=== PATIENT | female | born 1935 | race Caucasian/White ===

== ENCOUNTER 2021-05-09 09:13 | Inpatient (IN) ==
--- NOTE | 2021-04-07 15:41 | PAT Medication Instructions ---
Medication Instructions Date of Service April 07, 2021 Home Medications acetaminophen [Tylenol] 325 mg PO QID PRN amlodipine-benazepril [Lotrel] 1 cap PO QAM hydrochlorothiazide 12.5 mg PO QAM vitamin A-vitamin C-vit E-min [Ocuvite] 1 tab PO Q2D STOP taking 2 weeks before surgery (or as soon as possible if surgery is within 2 weeks) vitamin A-vitamin C-vit E-min [Ocuvite] 1 tab PO Q2D DO NOT take the morning of surgery amlodipine-benazepril [Lotrel] 1 cap PO QAM hydrochlorothiazide 12.5 mg PO QAM Take morning of surgery With a small sip of water, OTHERWISE NOTHING TO EAT OR DRINK AFTER MIDNIGHT: acetaminophen [Tylenol] 325 mg PO QID PRN (okay to take up to 4 hours prior to surgery if needed) Take evening before surgery acetaminophen [Tylenol] 325 mg PO QID PRN (if needed) Other Notes If you have any questions please call us at [phone] or [phone] or [phone] or [phone]
--- NOTE | 2021-04-10 09:52 | Anesthesiology Consultation ---
Date of Service April 10, 2021 Assessment & Plan (1) Encounter for pre-operative examination: COVID Status: As of 04/09 assessment, patient denies travel to endemic area, known exposure/sick contacts, or symptoms of COVID19. Patient advised to adhere to social distancing guidelines, wear a mask in public and avoid large crowds or unnecessary travel in the 2 weeks leading up to surgery. Preoperative COVID19 testing to be completed prior to surgery per surgeon's arrangements. Pat ient encouraged to be extra cautious/conscientious with COVID precautions between COVID testing and surgery. Chart Review Chart Review: Acceptable Risk for Surgery (pending pcp and cardio clearances on order) and Patient seen in Pre Admission Testing Teaching & Discussion Instructed NPO after midnight before surgery, except medications with 15 cc of water. Medication instructions provided according to the PAT guidelines. History Surgery Operation Date: 05/09/21 09:25 Proposed Procedures p Left Total Knee Arthroplasty - Rodo Cameron DO Height/Weight Height: 5 ft Weight: 66.8 kg Allergies Allergy/AdvReac Type Severity Reaction Status Date / Time codeine AdvReac Mild "makes her Verified 04/04/21 12:21 feel like she is flying" Medications Home Medications Medication Instructions Recorded Confirmed Last Taken acetaminophen [Tylenol] 325 mg PO QID PRN 04/04/21 04/04/21 Unknown amlodipine-benazepril [Lotrel] 1 cap PO QAM 04/04/21 04/04/21 Unknown hydrochlorothiazide 12.5 mg PO QAM 04/04/21 04/04/21 Unknown vitamin A-vitamin C-vit E-min 1 tab PO Q2D 04/04/21 04/04/21 Unknown [Ocuvite] Past Medical History Medical History Hypertension Osteoarthritis Exercise / Class Metabolic Activity II 4-5 Yardwork/Stairs/Walk up hill (Moves slowly 2/2 pain but does 1 FOS daily at home 1 step at a time, uses cane) Past Surgical History Surgical History History of left cataract surgery History of right cataract surgery Hx laparoscopic cholecystectomy Hx of appendectomy Hx of foot surgery right foot toe surgery Past Anesthesia History No Hx of Anesthesia Complications and No Family Hx of Anesthesia Complications History of PONV No Hx of PONV and No Hx of Motion Sickness Social History Smoking Status: Never smoker Do You Dip or Chew Tobacco: No Hx Alcohol Use: No Hx Substance Use: No substance use type: does not use Review of Systems Pt denies any recent chest pain, shortness of breath, palpitations, cough, fever, URI, or uncontrolled acid reflux (rarely). Physical Exam Vital Signs BP: 151/68 P: 66bpm SPO2: 94% RA T: 97.7 F R: 16 ENMT Mouth: no dental restorations, no chipped teeth and no loose teeth Thyromental Distance: > or= 3.5 Finger Breadths Mallampati Class: II Neck normal visual inspection; neck extension not limited Respiratory normal respiratory effort, lungs clear to auscultation Cardiovascular RRR, no murmur, no edema Vessels: no carotid bruit Lab Results Anesthesia Preop Results Results Anesthesia Widget: WBC 6.61 K/uL (4.8-10.8) 04/10/21 Hgb 15.1 g/dL (12.0-16.0) 04/10/21 Hct 45.2 % (37-47) 04/10/21 Plt 188 K/uL (130-400) 04/10/21 Na 141 mmol/L (136-145) 04/10/21 K 4.7 mmol/L (3.5-5.1) 04/10/21 Cl 107 mmol/L (98-107) 04/10/21 CO2 29 mmol/L (21-32) 04/10/21 BUN 24 mg/dl (7-18) H 04/10/21 Creat 1.32 mg/dl (0.6-1.2) H 04/10/21 Glucose Level 97 mg/dl (70-99) 04/10/21 PT 10.2 Seconds (9.0-12.0) 04/10/21 PTT 24.5 Seconds (21.0-31.0) 04/10/21 INR 1.0 (0.9-1.1) 04/10/21 HA1c 6.0 % (4.5-5.6) H 04/10/21 Urine Color Yellow 04/10/21 Urine Appearance Clear (Clear) 04/10/21 Urine pH 6.5 (4.5-7.5) 04/10/21 Urine Specific [place] 1.017 (1.000-1.030) 04/10/21 Urine Protein Negative (Negative) 04/10/21 Urine Glucose (UA) Negative (Negative) 04/10/21 Urine Ketones Trace (Negative) H 04/10/21 Urine Blood Negative (Negative) 04/10/21 Urine Nitrite Negative (Negative) 04/10/21 Urine Bilirubin Negative (Negative) 04/10/21 Urine Urobilinogen Negative (Negative) 04/10/21 Urine Leukocyte Esterase Trace (Negative) H 04/10/21 Urine WBC (Auto) 1-5 /hpf (0-5) 04/10/21 Urine RBC (Auto) 0-4 /hpf (0-4) 04/10/21 Urine Hyaline Casts (Auto) 1-5 /lpf (0-5) 04/10/21 Urine Epithelial Cells (Auto) >30 /lpf (0-5) H 04/10/21 Urine Bacteria (Auto) 1+ (Negative) H 04/10/21 Blood Type O Positive 04/10/21 Antibody Screen NEGATIVE 04/10/21 Lab Comments: *Patient's office notified of positive bacteria on UA. Testing Electrocardiogram Date: 04/10/21 Sinus rhythm at 66 bpm with frequent PVCs. Left axis deviation. Incomplete left bundle block. Nonspecific ST abnormality. Chest X-Ray Date: 04/10/21 1. No acute pulmonary process. Atherosclerosis.
--- NOTE | 2021-04-19 14:13 | History & Physical Report ---
Date of Service April 19, 2021 date of surgery: 05/09/21 Procedure: Left Total Knee Arthroplasty Assessment & Plan (1) Arthritis of knee, left: Further care discussed with patient and at this point in time has failed conservative measures and would like to proceed with a left total knee repl acement. Plan on discharge will be home with home healthphysical therapy. DVT prophalaxis with TEDs, SCDs and will also place on aspirin 81 mg p.o. b.i.d. for a month postop. Patient will have follow up appointment in our office two weeks post op for staple/suture removal and re-evaluation. Patient otherwise has no other questions or concerns. The risks and benefits have been discussed including, but not limited to, risk of infection, nerve injury, stiffness, loss of motion, failure to improve, etc. Reasonable outcomes and options of treatment were discussed. An explanation of appropriate alternatives to the procedure that may be advantageous were discussed and their risks and benefits, as well as the risks and benefits of not proceeding with treatment. I offered to answer any additional inquiries concerning the treatment involved. All the patient's questions were answered. The patient is agreeable, understanding of the treatment plan and alternatives, and wishes to proceed with the treatment plan. History of Present Illness Chief Complaint: left knee pain Primary Care Provider: NO PCP Becky is a 85 year old female who complains of left knee pain, presents for pre-op evaluation prior to a left total knee replacement by dr Cameron at [facility]. she complains of pain, crepitus, decreased range of motion and stiffness in the left knee. Currently the patient states that the symptoms are moderate-severe. The pain is described as aching, sharp and throbbing. The symptoms are aggravated by ascending stairs, daily activities, first steps while awake walking. Prior NSAIDs include IBU and Aleve. she has been treated with previous visco and cortisone injections in the past without much relief. Allergies Allergy/AdvReac Type Severity Reaction Status Date / Time codeine AdvReac Mild "makes her Verified 04/04/21 12:21 feel like she is flying" Home Medications Medication Instructions Recorded Confirmed Type acetaminophen [Tylenol] 325 mg PO QID PRN 04/04/21 04/04/21 History amlodipine-benazepril [Lotrel] 1 cap PO QAM 04/04/21 04/04/21 History hydrochlorothiazide 12.5 mg PO QAM 04/04/21 04/04/21 History vitamin A-vitamin C-vit E-min 1 tab PO Q2D 04/04/21 04/04/21 History [Ocuvite] Past Med/Surg History Medical History Hypertension Osteoarthritis Surgical History History of left cataract surgery History of right cataract surgery Hx laparoscopic cholecystectomy Hx of appendectomy Hx of foot surgery right foot toe surgery Social History Smoking Status: Never smoker Second Hand Exposure: No; Hx Alcohol Use: No Hx Substance Use: No Preferred Language: Nauruan Communication Ability: Effective Woods Overseer Required: No Beliefs That Will Affect Care: None Current Living Situation: Spouse Feels Safe at Home: Yes Assistive Devices: Glasses Review of Systems Review of Systems: All systems reviewed & are unremarkable except as noted in HPI & below Constitutional: no fever, no chills and no sweats Respiratory: no cough and no dyspnea Cardiovascular: no chest pain, no dyspnea and no orthopnea Gastrointestinal: no abdominal pain, no nausea and no vomiting Musculoskeletal: as per Subjective / HPI Physical Exam Physical Exam: HT: 5ft WT: 66.8kg Constitutional: WD/WN, vitals as above no acute distress Respiratory: normal respiratory effort, lungs clear to auscultation no respiratory distress, no labored breathing and does not use accessory muscles Cardiovascular: RRR, no murmur, no edema Gastrointestinal (Abdomen): normal bowel sounds, soft, nontender, no hepatosplenomegaly Musculoskeletal: Knee: + knee abnormal to inspection (LEFT KNEE), + effusion (+1 effusion), + limited ROM of knee (ROM 0/3/110), + knee ROM with crepitation, + joint line tenderness (medial joint line) and + Asia's sign positive; no deformity, no skin erythema, no ecchymosis, no valgus laxity, no varus laxity, anterior drawer test negative, Ahmet's sign negative and pivot shift test negative Results & Data Results & Data ([facility]) Diagnostic Findings Left Knee X-ray: left knee series confirm advanced degenerative changes to the left knee, tricompartmentally, showing joint space narrowing, osteophyte formation and subchondral sclerosis. no acute bony pathology noted.
[~2021-05-09 09:13] MED LIST: ACETAMINOPHEN 500 MG TAB PO SCH; BUPIVACAINE 0.25% 30 ML VIAL ONE; BUPIVACAINE 0.5 % 5 MG/1 ML PF 10ML VIAL ONE; CeleBREX 200 MG CAP PO SCH; EPINEPHrine INJ 1 MG/ML AMP ONE; FAMOTIDINE 20 MG TAB PO SCH; GABAPENTIN 300 MG CAP PO SCH; LR 500ML BOLUS, THEN 15ML/HR IV SCH; METOCLOPRAMIDE HCL 10 MG TABLET PO SCH; Scopolamine 1 MG TDSY TD SCH; TRANEXAMIC ACID 1,000 MG **IV Intra-op IV SCH; TRANEXAMIC ACID 1,000 MG **IV Pre-op IV SCH; ceFAZolin 1000MG 1,000 MG/7.5 ML SYR IV SCH; dexAMETHasone 4 MG TAB PO SCH
--- NOTE | 2021-05-09 10:09 | History & Physical Bridge Note ---
Date of Service May 09, 2021 History & Physical Bridge Note I have examined the patient, reviewed the History & Physical and in the interval since the performance of the History & Physical I have noted the following changes of clinical significance: no changes noted
[2021-05-09] MEDS ORDERED: ROPIVACAINE 0.5% HCL/PF 150 MG, BUPIVACAINE 0.75% MPF 20 ML, EPINEPHrine 30MG/30ML (OR ... INFIL ONE (10:30)
[2021-05-09] MEDS ORDERED: ACETAMINOPHEN 500 MG TAB ONE (10:36)
[2021-05-09] MEDS ORDERED: CeleBREX 200 MG CAP ONE (10:37)
[2021-05-09] MEDS ORDERED: dexAMETHasone 4 MG TAB PO ONE (10:37)
[2021-05-09] MEDS ORDERED: GABAPENTIN 300 MG CAP ONE (10:38)
[2021-05-09] MEDS ORDERED: FAMOTIDINE 20 MG TAB ONE (10:38)
[2021-05-09] MEDS ORDERED: METOCLOPRAMIDE HCL 10 MG TABLET ONE (10:39)
[2021-05-09] MEDS ORDERED: TRANEXAMIC ACID / 0.7% NACL 1000MG/100ML BAG IV ONE (10:39)
[2021-05-09] MEDS ORDERED: SCOPOLAMINE 1 MG TDSY TD ONE (10:39)
[2021-05-09] MEDS ORDERED: PROPOFOL IV EMULSION 10 MG/ML 20 ML VIAL IV ONE (11:50)
[2021-05-09] MEDS ORDERED: DEXAMETHASONE SOD INJ 4 MG/ML VIAL ONE (12:01)
[2021-05-09] MEDS ORDERED: LIDOCAINE 2% 2 ML VIAL/AMP(20MG/ML) INFIL ONE (12:01)
[2021-05-09] MEDS ORDERED: MIDAZOLAM HCL 1 MG/ML 2ML VIAL ONE (12:01)
[2021-05-09] MEDS ORDERED: fentaNYL citrate 100 MCG/2 ML VIAL IV PRN (13:00)
[2021-05-09] MEDS ORDERED: ONDANSETRON INJ 2 MG/ML 2 ML VIAL IV PRN ×2 (13:00→16:43)
[2021-05-09] MEDS ORDERED: ATROPINE SULFATE 0.1 MG/ML 10ML SYR IV PRN (13:00)
[2021-05-09] MEDS ORDERED: ePHEDrine sulfate 50 MG/ML AMP IV PRN (13:00)
[2021-05-09] MEDS ORDERED: HYDROmorphone INJ 2 MG/ML SYR/VIAL IV PRN (13:00)
--- NOTE | 2021-05-09 14:31 | Operative Report ---
Post Operative Report Pre & Post Diagnosis Operation Date: 05/09/21 09:25 <No data on this case meets the specified criteria> Operation Date: 05/09/21 11:25 Pre-Op Diagnosis: Unilateral Primary Osteoarthritis, Left Knee Post-Op Diagnosis: Unilateral Primary Osteoarthritis, Left Knee I identified the patient and participated in the time-out.: Yes Procedure Operation Date: 05/09/21 09:25 <No data on this case meets the specified criteria> Operation Date: 05/09/21 11:25 Actual Procedures p Left Total Knee Arthroplasty(Left left total knee arthroplasty utilizing [employer] persona with block femur size 8 narrow tibia D polytwelve medial constrained patella 28 raghu- Rodo Cameron DO Surgeon Rodo Cameron DO Medical Billing Clerk Don BALDERRAMA Estimated Blood Loss 5 Findings Consistent with Post-Op Diagnosis Patient presents with severe end-stage DJD valgus alignment 10 degree flexion contracture left knee with eburnated [id number] subchondral sclerosis cystic changes marginal osteophytes moderate to large effusion Specimens Bone and cartilage Drains Medium bore Hemovac Anesthesia Type MAC Spinal Regional Complications none Disposition Accompanied Patient To Recovery: No Disposition: Recovery Room Indications Patient presents with severe end-stage DJD valgus alignment left knee no response to conservative management and physical therapy anti-inflammatories relative rest activity modifications corticosteroid injection patient presents for left total knee arthroplasty Description of Procedure After proper prepping and draping of the left lower extremity anterior midline incision was made over the region of the extensor extensor mechanism after meticulous hemostasis was obtained and maintained in subcutaneous tissues a medial parapatellar incision was made The patella was subluxed lateralward the medial lateral gutter were cleaned from any hypertrophic synovitis and scar tissue of the distal femoral block was placed and the distal femoral osteotomy cut was made subsequently the chamfers anterior and posterior osteotomy cuts were made utilizing the 4-in-1 block the tibia was subsequently subluxed anteriorward medial and ateral meniscal remnants were excised in their entirety remnants of the anterior and posterior cruciate ligaments were excised in their entirety excellent exposure of the proximal tibia was obtained the tibial osteotomy guide was placed on the proximal tibial osteotomy cut was made once again the knee was irrigated with copious amounts of sterile saline solution the patella was subsequently everted lateralward thickened scar tissue around the patella was removed the patella was subsequently cut utilizing a freehand technique and was drilled prepared for final preparation and placement of patella socially flexion-extension gaps were checked and the equal and symmetric trials were placed to the appropriate femoral and tibial trials with poly-spacer being placed for equal flexion and extension gaps and full range of motion including extension to 0 and flexion to 140 the trial components after having been taken to recovery range of motion was subsequently removed meticulous hemostasis was obtained and maintained subsequently a knee block injection of joint cocktail including ropivacaine 0.5% 150 mg. Bupivacaine 0.5% epinephrine 1-200,030 mL's toradol 30 mg dexamethasone 4 mg ketamine 10 mg clonidine 100 micrograms normal saline solution 30 mg was infiltrated into the soft tissues of the posterior knee medial lateral gutters and periosteal synovium special attention was paid to protect neurovascular structures at all times subsequently trial components having been removed the knee was irrigated with sterile saline solution. debris was removed the proximal tibia was subsequently prepared and was made ready for the placement of the tibial component tibial component was also cemented and tamped into position the femoral component was subsequently placed and cemented in the position the patellar component was subsequently cemented in position because hemostasis once again obtained and maintained wound having been thoroughly irrigated with debridement and debridement lavage was performed as well as a medial parapatellar incision closed with #1 Vicryl in i nterrupted fashion subcutaneous was closed with #2 Vicryl skin was closed with skin clips. PA-C was necessary for prepping and drapping as well as wound closure of deep fascia Sub cutaneous tissue and skin and was necessary for the case. A sterile compressive dressing was placed patient was taken to recovery in stable condition of report dictated by Rakesh I attest to the content of the Intraoperative Record and any orders documented therein. Any exceptions are noted below. I attest to the content of the Intraoperative Record and any orders documented therein. Any exceptions are noted below.
[2021-05-09] MEDS ORDERED: ONDANSETRON INJ 2 MG/ML 2 ML VIAL ONE (14:36)
--- NOTE | 2021-05-09 15:39 | XRay Report ---
XR knee LT 1 or 2V routine CLINICAL HISTORY: Postoperative evaluation. COMPARISON: None FINDINGS: Alignment of the total left knee arthroplasty is anatomic. There is no periprosthetic frac ture. No unexpected radiopaque foreign body is noted. There are drains and skin georgette. IMPRESSION: Expected findings following total left knee arthroplasty. ACT 112: Negative or not required by law. Electronically signed by: Rashaad Shaffer M.D. 05/09/2021 3:38 PM
--- NOTE | 2021-05-09 15:41 | Anesthesiology Progress Note ---
Date of Service May 09, 2021 Anesthesia Post Procedure Vital Signs Vital Signs: Temp Pulse Pulse Resp BP Pulse Ox 05/09/21 15:35 73 21 136/61 97 05/09/21 15:25 74 17 120/51 L 98 05/09/21 15:15 75 23 128/64 98 05/09/21 15:07 36.8 C 74 18 123/63 98 05/09/21 10:13 36.8 C 69 18 180/80 H 98 Transfer of Care Handoff Completed per policy Notes Mental Status: alert / awake / arousable Patient Amnestic to Procedure: Yes Nausea / Vomiting: adequately controlled Pain: adequately controlled Airway Patency, RR, SpO2: stable & adequate BP & HR: stable & adequate Hydration State: stable & adequate Neuraxial Anesthesia: was administered and sensory block is resolving Anesthetic Complications: no major complications apparent and Pt Satisfied with anesthetic care Notes: The patient is awake and comfortable. She was noted to have some bigeminy on a rhythm strip but it appears to be similar to her preoperative EKG. The patient's vital signs are all stable and she has no chest pain or sob.
[2021-05-09] MEDS ORDERED: Scopolamine CHECK PATCH PLACEMENT SCH (16:00)
[2021-05-09] MEDS ORDERED: bisacodyL 10 MG SUPP PR PRN (16:43)
[2021-05-09] MEDS ORDERED: NALOXONE HCL 0.4 MG/1 ML VIAL/CARP IV PRN (16:43)
[2021-05-09] MEDS ORDERED: MAGNESIUM HYDROXIDE SUSP 30 ML UDC PO PRN (16:43)
[2021-05-09] MEDS ORDERED: HYDROmorphone INJ 0.5 MG/0.5 ML SYR IV PRN (16:43)
[2021-05-09] MEDS: SODIUM CHLORIDE 0.9% 1000ML 1,000 ML IV SCH (16:52)
[2021-05-09] MEDS: ceFAZolin 1000MG 1,000 MG/7.5 ML SYR IV SCH (21:27)
[2021-05-09] MEDS: SENNA 8.6 MG TAB PO SCH (21:27)
[2021-05-09] MEDS: ACETAMINOPHEN 500 MG TAB PO SCH (21:27)
[2021-05-09] MEDS: DOCUSATE SODIUM 100 MG CAP PO SCH (21:27)
[2021-05-09] MEDS: ASPIRIN 81 MG ECTAB PO SCH (21:28)
[2021-05-10] MEDS: ceFAZolin 1000MG 1,000 MG/7.5 ML SYR IV SCH (04:37)
[2021-05-10] MEDS: ACETAMINOPHEN 500 MG TAB PO SCH ×3 (06:21→21:16)
[2021-05-10] MEDS: SODIUM CHLORIDE 0.9% 1000ML 1,000 ML IV SCH (06:56)
[2021-05-10 07:24] LABS: Hematocrit (blood only) 41.5 % (37-47); Hemoglobin 13.7 g/dL (12.0-16.0); Mean Corpuscular Hemoglobin 31.3 pg (25-34); Mean Corpuscular Volume 94.7 fL (80-100); Mean Platelet Volume 9.8 fL (7.4-10.4); Platelet Count 188 K/uL (130-400); RDW Coefficient of Variation 13.1 % (11.5-14.5); RDW Standard Deviation 45.7 fL (36.4-46.3); Red Blood Count 4.38 M/uL (4.2-5.4); White Blood Count 9.39 K/uL (4.8-10.8)
[2021-05-10 08:03] LABS: BUN Creatinine Ratio 19.9 (10-20); Calcium 9.1 mg/dl (8.5-10.1); Creatinine Clr Calc Pharmacy 24.8 ml/min; Est GFR (African American) 40.4 ml/min; Est GFR (Non-African American) 34.8 ml/min; Potassium 4.5 mmol/L (3.5-5.1)
--- NOTE | 2021-05-10 08:10 | Orthopedic Progress Note ---
Date of Service May 10, 2021 Assessment & Plan (1) Arthritis of knee, left: Plan: Postop day 1 status post left total knee arthroplasty [id number]-[id number]-bzicqle seems to have responded well to being put back to bed and being in the supine position with her head of bed raised to approximately 20 degrees. She has no more episodes of lightheadedness at this time. With her bradycardia of 32, we will consult medicine service out of precaution. PT/OT protocols. Weightbearing as tolerated. If tolerated. We will see how she does with sitting up at the bedside later today. DVT prophylaxis-aspirin p.o. twice daily, DORINDAs, TOÑA shah. Pain management as written. Mild increase in her creatinine noted this morning from 1.32-1.37. Admission and Anticipated Discharge Date Admission Date: May 09, 2021 Subjective Patient lying in bed. She is awake and alert. States that when she got up this morning to the bedside commode she was doing fine. She was able to use the bedside commode successfully however she began to become very lightheaded near the end of the process and they were able to get her back into bed. Nursing not ed that her heart rate had dropped down as low as 32 and they were having difficulty getting blood pressures. Patient denies any shortness of breath or chest pain. Currently she has no lightheadedness and her blood pressure and heart rate have come back up. Most recent heart rate was 75 and systolic blood pressure was 149. Her pain is controlled at this time. She has no complaints. Physical Exam Physical Exam: Dressings are clean, dry, and intact. Calves are soft and nontender. Neurovascular intact. Toes are mobile. She has good dorsiflexion and plantarflexion of the left foot. Hemovac drainage was minimal from the previous shift. Results & Data ([facility]) Vital Signs (Past 12 Hours) Vital Signs Temp Pulse Resp BP Pulse Ox 05/10/21 03:45 36.4 C L 54 L 16 141/72 H 98 05/09/21 23:08 36.6 C 57 L 17 145/87 H 97 05/09/21 20:14 36.4 C L Laboratory Results Laboratory Results WBC 9.39 K/uL (4.8-10.8) 05/10/21 07:05 RBC 4.38 M/uL (4.2-5.4) 05/10/21 07:05 Hgb 13.7 g/dL (12.0-16.0) 05/10/21 07:05 Hct 41.5 % (37-47) 05/10/21 07:05 MCV 94.7 fL (80-100) 05/10/21 07:05 MCH 31.3 pg (25-34) 05/10/21 07:05 MCHC 33.0 g/dL (32-36) 05/10/21 07:05 RDW Std Deviation 45.7 fL (36.4-46.3) 05/10/21 07:05 RDW Coeff of Thomas 13.1 % (11.5-14.5) 05/10/21 07:05 Plt Count 188 K/uL (130-400) 05/10/21 07:05 MPV 9.8 fL (7.4-10.4) 05/10/21 07:05 Sodium 140 mmol/L (136-145) 05/10/21 07:05 Potassium 4.5 mmol/L (3.5-5.1) 05/10/21 07:05 Chloride 111 mmol/L (98-107) H 05/10/21 07:05 Carbon Dioxide 25 mmol/L (21-32) 05/10/21 07:05 Anion Gap 4.0 (3-11) 05/10/21 07:05 BUN 27 mg/dl (7-18) H 05/10/21 07:05 Creatinine 1.37 mg/dl (0.6-1.2) H 05/10/21 07:05 Est Cr Clr Drug Dosing 24.8 ml/min 05/10/21 07:05 Est GFR ( Amer) 40.4 ml/min 05/10/21 07:05 Est GFR (Non-Af Amer) 34.8 ml/min 05/10/21 07:05 BUN/Creatinine Ratio 19.9 (10-20) 05/10/21 07:05 Glucose 148 mg/dl (70-99) H 05/10/21 07:05 Calcium 9.1 mg/dl (8.5-10.1) 05/10/21 07:05 COVID-19 [facility] [place] 05/09/21 08:11 SARS-CoV-2, RNA, NAAT NEGATIVE (NEGATIVE) 05/09/21 08:11 Impressions Knee X-Ray 05/09/21 15:14 XR knee LT 1 or 2V routine CLINICAL HISTORY: Postoperative evaluation. COMPARISON: None FINDINGS: Alignment of the total left knee arthroplasty is anatomic. There is no periprosthetic fracture. No unexpected radiopaque foreign body is noted. There are drains and skin georgette. IMPRESSION: Expected findings following total left knee arthroplasty. ACT 112: Negative or not required by law. Electronically signed by: Rashaad Shaffer M.D. 05/09/2021 3:38 PM
--- NOTE | 2021-05-10 08:30 | Hospitalist Consultation ---
Date of Consultation May 10, 2021 Assessment & Plan (1) Near syncope: Impression: This is an 85-year-old female that underwent total knee arthroplasty of the left knee yesterday with total EBL of 5 mL. She has been doing well but had near syncope when returning from the restroom this morning. She had bradycardia with a heart rate of 32 bpm and staff was unable to obtain blood pressure with Dinamap machine. Manual pressure was not attempted. Patient is alert and oriented and had no loss of consciousness. No chest pain or tightness. Recommendations: * Stat EKG * Orthostatic blood pressures * Check BSG (no history of diabetes mellitus or hypoglycemia) * Check troponin I * Echocardiogram * Check manual pressures * Check a TSH At this time we will not transfer the patient to telemetry unit pending current work-up. She is asymptomatic. Watch her closely at this time Pending results of above, may move to telemetry (2) S/P knee replacement: POD #[address] Cameron Pain controlled Ambulating well Further management per orthopedics (3) Hypertension: Due to near syncope and hypotension this morning, will hold hydrochlorothiazide, enalapril, and amlodipine Systolic pressure currently 146 (4) DVT prophylaxis: Aspirin 81 mg p.o. daily per orthopedics Chemical prophylaxis per orthopedics Thank you very much for including us in the care of this patient. We will continue to follow along pending the above orders. Please refer to Dr. High's addendum for corrections or additions. Supervising Physician Co-Signing Physician Notes I personally saw and examined the patient. I verified all crockett points and agree with Rajan Borja PA-C with the following exceptions and/or additions: O/E Chest CTAB, HS regularly irregular (occasional bigeminy), no murmurs, pulse 60 however weaker pulse when ectopic beat present Presyncope with excessive PVC burden. Per pre-op EKG this appears to be longstanding. Given ongoing pre-syncope will trend troponins and observe further on telemetry, echocardiogram pending. Avoid additional BB or Ca channel mauricio for now. History of Present Illness Reason for Consultation: Near syncope Requesting Physician: Don Reza PA-C Attending Physician: Rodo Cameron DO History of Present Illness Attending: Dr. Josh High This is a very pleasant 85-year-old female with a past medical history including osteoarthritis, hypertension. The patient presented yesterday for total left knee arthroplasty and successfully had a knee replacement with an estimated blood loss of only 5 mL. Pain is generally controlled. She has been doing well since her surgery. This morning she went to the bathroom and was on her way back to the bed when she had episodic bradycardia with a rate in the 30s. She is alert and oriented. She had no loss of consciousness. She is able to safely make it back to the bed. Nursing was unable to obtain a blood pressure with Dinamap. Patient had no chest pain or tightness. She denied any shortness of breath. She denied significant acute pain in the knee at the time of the bradycardia. Almost immediately the patient's systolic blood pressure recovered and is currently 146/59 with a rate of 74 bpm. Patient had no fever, chills, sweats, rigors. She denies any other acute complaints. Allergies Allergy/AdvReac Type Severity Reaction Status Date / Time codeine AdvReac Mild "makes her Verified 04/04/21 12:21 feel like she is flying" Home Medications Medication Instructions Recorded Confirmed Type acetaminophen 325 mg tablet 325 mg PO QID PRN 04/04/21 05/09/21 History (Tylenol) amlodipine 5 mg-benazepril 20 mg 1 cap PO QAM 04/04/21 05/09/21 History capsule (Lotrel) hydrochlorothiazide 12.5 mg capsule 12.5 mg PO QAM 04/04/21 05/09/21 History vitamin A-vitamin C-vit E-min 1 tab PO Q2D 04/04/21 05/09/21 History tablet Patient History Medical History (Updated 05/10/21 @ 09:04 by Rajan Borja PA-C) Hypertension Osteoarthritis Surgical History (Updated 05/10/21 @ 09:04 by Rajan Borja PA-C) History of left cataract surgery History of right cataract surgery Hx laparoscopic cholecystectomy Hx of appendectomy Hx of foot surgery right foot toe surgery Social History Smoking Status: Never smoker Second Hand Exposure: No; Do You Dip or Chew Tobacco: No; Tobacco Cessation Education Requested by Patient: No Hx Alcohol Use: No Hx Substance Use: No Preferred Language: [place]an Communication Ability: Effective Cigarette Seller Required: No Beliefs That Will Affect Care: None marital status: Current Living Situation: Spouse Other Information That Helps Us Care for You: No Feels Safe at Home: Yes Safety Concerns: Feels Safe At This Time Assistive Devices: Walker Review of Systems Review of Systems: All systems reviewed & are unremarkable except as noted in Subjective Physical Exam Physical Exam: GENERAL : No acute distress. Pleasant and talkative EYES: No icterus, gaze conjugate. Pupils equal round and reactive to light NOSE: No evidence of epistaxis. MOUTH: No lesions or candidiasis. Mucosa is moist NECK: Supple. No appreciation of stridor or carotid bruits LUNGS: CTA B/L, no wheezes, rales or rhonchi HEART: Regular, rate controlled with occasional ectopy ABDOMEN: Soft, NT, ND, BS Present EXTREMITIES: No LE edema, pedal pulses intact NEURO: A&OX3. Follows commands. No slurred speech. Tongue midline. Pupils equal round and reactive to light. Strength equal and appropriate bilaterally to upper extremities. No focal deficits to cranial nerves II through XII appreciated. Gait and Romberg were deferred secondary to near syncope. Results & Data Results & Data ([facility]) Vital Signs (Past 12 Hours) Vital Signs Temp Pulse Resp BP BP Pulse Ox 05/10/21 08:18 74 146/59 H 93 05/10/21 08:17 40 L 127/50 L 91 05/10/21 03:45 36.4 C L 54 L 16 141/72 H 98 05/09/21 23:08 36.6 C 57 L 17 145/87 H 97 Laboratory Results 05/10/21 07:05 05/10/21 07:05 PG Care Time/CCT Total # of Minutes Spent Total Time Spent with Patient: Total time spent is greater than 50% in coordination of care (as documented) at patient's floor/unit and/or counseling patient:45 minutes Coding Level of Care Code 52744 Inpt Consult Level 5 Diagnoses DVT prophylaxis Z29.9 S/P knee replacement Z96.659 Hypertension I10 Near syncope R55 Time Spent (min) 45
[2021-05-10] MEDS ORDERED: ENALAPRIL MALEATE 10 MG TAB PO SCH (09:00)
[2021-05-10] MEDS ORDERED: hydroCHLOROthiazide 25 MG TAB PO SCH (09:00)
[2021-05-10] MEDS: MULTIVITAMIN TAB PO SCH (11:14)
[2021-05-10] MEDS: ASPIRIN 81 MG ECTAB PO SCH ×2 (11:15→21:17)
[2021-05-10] MEDS: DOCUSATE SODIUM 100 MG CAP PO SCH ×2 (11:15→21:17)
--- NOTE | 2021-05-10 16:25 | Electrocardiogram Report ---
Test Reason : Blood Pressure : / mmHG Vent. Rate : 069 BPM Atrial Rate : 069 BPM P-R Int : 210 ms QRS Dur : 110 ms QT Int : 420 ms P-R-T Axes : 070 -34 -15 degrees QTc Int : 450 ms Sinus rhythm with 1st degree A-V block with frequent Premature ventricular complexes in a pattern of bigeminy Left axis deviation Minimal voltage criteria for LVH, may be normal variant Poor R wave progression, consider anterior ME vs. lead placement vs. LVH Abnormal ECG When compared with ECG of 10-APR-2021 10:12, NV interval has increased Borderline criteria for Anterior infarct are now Present Confirmed by Delmar Rainey ([id number]) on 05/10/2021 4:25:16 PM Referred By: Rodo Cameron Confirmed By:Delmar Rainey
--- NOTE | 2021-05-10 16:58 | XCELERA ---
[id number]
[2021-05-10] MEDS ORDERED: PNEUMOCOCCAL POLYSACCHARIDES 25 MCG/0.5 ML VIAL/SYR IM ONE (19:32)
[2021-05-10] MEDS: SENNA 8.6 MG TAB PO SCH (21:17)
[2021-05-11] MEDS: ACETAMINOPHEN 500 MG TAB PO SCH ×3 (04:57→22:02)
--- NOTE | 2021-05-11 08:16 | Electrocardiogram Report ---
Test Reason : Blood Pressure : / mmHG Vent. Rate : 070 BPM Atrial Rate : 057 BPM P-R Int : 178 ms QRS Dur : 112 ms QT Int : 404 ms P-R-T Axes : -09 -30 004 degrees QTc Int : 436 ms Sinus bradycardia with frequent Premature ventricular complexes Left axis deviation Cannot rule out Anterior infarct (cited on or before 10-MAY-2021) Abnormal ECG When compared with ECG of 10-MAY-2021 08:27, No significant change Confirmed by Nathan Baldwin ([id number]) on 05/11/2021 8:15:55 AM Referred By: Rodo Cameron Confirmed By:Nathan Baldwin
[2021-05-11] MEDS: MULTIVITAMIN TAB PO SCH (08:54)
[2021-05-11] MEDS: DOCUSATE SODIUM 100 MG CAP PO SCH ×2 (08:54→20:18)
[2021-05-11] MEDS: ASPIRIN 81 MG ECTAB PO SCH ×2 (08:54→20:15)
[2021-05-11] MEDS: amLODIPine BESYLATE 5 MG TAB PO SCH (10:14)
[2021-05-11] MEDS: traMADol HCL 50 MG TABLET PO PRN ×2 (11:50→15:22)
--- NOTE | 2021-05-11 11:58 | Orthopedic Progress Note ---
Date of Service May 11, 2021 Assessment & Plan (1) Arthritis of knee, left: Plan: Postop day 1 status post left total knee arthroplasty Idfndehvwalkvej-tavketaqxjz-yvzeltd denies any other lightheadedness but pulse continues to fluctuate. PT/OT protocols. Weightbearing as tolerated. Patient ambulated a short distance in the hallway. Slowly progressing. DVT prophylaxis-aspirin p.o. twice daily, SCDs, TOÑA shah. Pain management as written. Medical management per [facility] Hospitalist service DC planning-patient is planning for home health services upon discharge. Admission and Anticipated Discharge Date Admission Date: May 09, 2021 Subjective Postop day 2 Patient sitting up in her chair awake and alert. She states that she just finished physical therapy a few minutes prior. She is having moderate pain right now. Nursing staff is currently getting her some pain medication. She has no other complaints. Denies shortness of breath, chest pain, lightheadedness. Physical Exam Physical Exam: Dressings are clean, dry, and intact. Hemovac drain appears to been removed. Prosper functioning. Calves are soft nontender. Neurovascular tact. Toes are mobile. Results & Data ([facility]) Vital Signs (Past 12 Hours) Vital Signs Temp Pulse Pulse Pulse Resp BP Pulse Ox 05/11/21 08:00 36.4 C L 34 L 16 134/50 L 92 05/11/21 03:21 36.5 C 37 L 16 125/52 L 93 05/11/21 00:52 72 Laboratory Results 05/11/21 05/10/21 Range/Units 06:08 17:21 Troponin I < 0.015 < 0.015 (0-0.045) ng/ml
--- NOTE | 2021-05-11 15:56 | Hospitalist Progress Note ---
Date of Service May 11, 2021 Assessment & Plan (1) Near syncope: Plan: Impression: This is an 85-year-old female that underwent total knee arthroplasty of the left knee yesterday with total EBL of 5 mL. She has been doing well but had near syncope when returning from the restroom this morning. She had bradycardia with a heart rate of 32 bpm and staff was unable to obtain blood pressure with Dinamap machine. Manual pressure was not attempted. Patient is alert and oriented and had no loss of consciousness. No chest pain or tightness. Troponins negative Echocardiogram unremarkable Mostly bigeminy on monitor, pulse detected but weaker with PVC therefore suspect pulse higher than what is being recorded Her bigeminy appears to be longstanding on her outpatient EKG and not associated with symptoms or anatomical changed on echocardiogram Orthostatics negative - while off enalapril and HCTZ, can restart enalapril Stable for discharge from a medical stand point - hold HCTZ on discharge with close follow up with her PCP (2) S/P knee replacement: Plan: POD #[address] Cameron Pain controlled Ambulating well Further management per orthopedics (3) Hypertension: Plan: Continue enalapril and amlodipine Continue to hold HCTZ (4) DVT prophylaxis: Plan: Aspirin 81 mg p.o. daily per orthopedics Chemical prophylaxis per orthopedics Thank you very much for including us in the care of this patient. We will continue to follow as the patient is admitted Admission and Anticipated Discharge Date Admission Date: May 09, 2021 Subjective No further syncope, presyncope, chest pain or shortness of breath. Pain under control. Awaiting physical therapy today. Review of Systems Review of Systems: All systems reviewed & are unremarkable except as noted in HPI & below Physical Exam Constitutional: WD/WN, vitals as above Neck: trachea midline, no thyromegaly Respiratory: normal respiratory effort, lungs clear to auscultation Cardiovascular: Rate/Rhythm: regular rhythm (frequent ectopic beats) Heart Sounds: no murmur Vessels: radial pulses present (perfusing PVC beats but weaker) Gastrointestinal (Abdomen): normal bowel sounds, soft, nontender, no hepatosplenomegaly Skin: no rashes, warm and dry Neurologic: moves all extremities and awake; not confused Psychiatric: A+Ox3, euthymic affect Results & Data Results & Data ([facility]) Vital Signs (Past 12 Hours) Vital Signs Temp Pulse Pulse Resp BP BP Pulse Ox 05/11/21 12:26 36.5 C 53 L 18 113/70 95 05/11/21 12:23 96 05/11/21 08:00 36.4 C L 34 L 16 134/50 L 92 PG Care Time/CCT Total # of Minutes Spent Total Time Spent with Patient: Total time spent is greater than 50% in coordination of care (as documented) at patient's floor/unit and/or counseling patient: Coding Level of Care Code 45068 Subseq Hosp Care Lvl 2 Diagnoses Near syncope R55 S/P knee replacement Z96.659 Hypertension I10 DVT prophylaxis Z29.9
[2021-05-11] MEDS: SENNA 8.6 MG TAB PO SCH (20:16)
[2021-05-12 02:29] VITALS: O2SAT 91
[2021-05-12] MEDS: ACETAMINOPHEN 500 MG TAB PO SCH ×2 (06:02→13:29)
[2021-05-12] MEDS: amLODIPine BESYLATE 5 MG TAB PO SCH (08:23)
[2021-05-12] MEDS: ASPIRIN 81 MG ECTAB PO SCH (08:23)
[2021-05-12] MEDS: MULTIVITAMIN TAB PO SCH (08:23)
[2021-05-12] MEDS: DOCUSATE SODIUM 100 MG CAP PO SCH (08:51)
[2021-05-12 11:36] VITALS: TEMP 97.9
--- NOTE | 2021-05-12 12:41 | Hospitalist Progress Note ---
Date of Service May 12, 2021 Assessment & Plan (1) Near syncope: Plan: Impression: This is an 85-year-old female that underwent total knee arthroplasty of the left knee yesterday with total EBL of 5 mL. She has been doing well but had near syncope when returning from the restroom this morning. She had bradycardia with a heart rate of 32 bpm and staff was unable to obtain blood pressure with Dinamap machine. Manual pressure was not attempted. Patient is alert and oriented and had no loss of consciousness. No chest pain or tightness. Troponins negative Echocardiogram unremarkable Mostly bigeminy on monitor, pulse detected but weaker with PVC therefore suspect pulse higher than what is being recorded Her bigeminy appears to be longstanding on her outpatient EKG and not associated with symptoms or anatomical changed on echocardiogram Orthostatics negative - while off enalapril and HCTZ, can restart enalapril Stable for discharge from a medical stand point - hold HCTZ on discharge with close follow up with her PCP - discussed with orthopedics (2) S/P knee replacement: Plan: POD #[address] Cameron Pain controlled Ambulating well Further management per orthopedics (3) Hypertension: Plan: Continue enalapril and amlodipine Continue to hold HCTZ (4) DVT prophylaxis: Plan: Aspirin 81 mg p.o. daily per orthopedics Chemical prophylaxis per orthopedics Thank you very much for including us in the care of this patient. We will continue to follow as the patient is admitted Admission and Anticipated Discharge Date Admission Date: May 09, 2021 Subjective No further syncope, presyncope, chest pain or shortness of breath. Pain under control. Did well with physical therapy without recurrence of symptoms. Review of Systems Review of Systems: All systems reviewed & are unremarkable except as noted in HPI & below Physical Exam Constitutional: WD/WN, vitals as above Neck: trachea midline, no thyromegaly Respiratory: normal respiratory effort, lungs clear to auscultation Cardiovascular: Rate/Rhythm: regular rhythm (frequent ectopic beats) Heart Sounds: no murmur Vessels: radial pulses present (perfusing PVC beats but weaker) Gastrointestinal (Abdomen): normal bowel sounds, soft, nontender, no hepatosplenomegaly Skin: no rashes, warm and dry Neurologic: moves all extremities and awake; not confused Psychiatric: A+Ox3, euthymic affect Results & Data Results & Data ([facility]) Vital Signs (Past 12 Hours) Vital Signs Temp Pulse Pulse Pulse Resp BP Pulse Ox 05/12/21 11:35 36.6 C 60 18 128/57 L 91 05/12/21 08:10 36.4 C L 50 L 16 115/58 L 91 05/12/21 06:02 72 05/12/21 04:47 72 05/12/21 04:40 36.3 C L 35 L 17 129/54 L 91 05/12/21 02:25 36.5 C 51 L 18 133/47 L 91 PG Care Time/CCT Total # of Minutes Spent Total Time Spent with Patient: Total time spent is greater than 50% in coordination of care (as documented) at patient's floor/unit and/or counseling patient: Coding Level of Care Code 56682 Subseq Hosp Care Lvl 2 Diagnoses Near syncope R55 S/P knee replacement Z96.659 Hypertension I10 DVT prophylaxis Z29.9
--- NOTE | 2021-05-12 12:58 | Orthopedic Progress Note ---
Date of Service May 12, 2021 Assessment & Plan (1) Arthritis of knee, left: Plan: Postop day 3 status post left total knee arthroplasty Lightheadedness-bradycardia--patient has not experienced any syncopal episodes over the past day. Her vital signs have been stable. PT/OT protocols. Weightbearing as tolerated. Patient is improved today with physical therapy. They are currently recommending return home. DVT prophylaxis-aspirin p.o. twice daily, SCDs, TOÑA shah. Pain management as written. Medical management per [facility] hospitalist service--spoke with Dr. High today. He states the patient is medically stable to be discharged today. DC planning-patient is planning for home health services upon discharge. Spoke with case management and they are setting up home health. Patient be discharged later today if her home health is set. Admission and Anticipated Discharge Date Admission Date: May 09, 2021 Subjective Patient states she did well at physical therapy today. She ambulated in the hallway and also was able to do 4 steps both ascending and descending. Her pain is controlled in the left knee. States there is some soreness but improved from yesterday. Denies any shortness of breath or lightheadedness. No further syncope, presyncope, chest pain or shortness of breath. Pain under control. Physical Exam Constitutional: WD/WN, vitals as above Musculoskeletal: Knee: + surgical incision (Left knee: tina dressing in place and functioning); no skin erythema and no ecchymosis Skin: no rashes, warm and dry Neurologic: normal touch/pain/proprioception (Left dorsiflexion and plantar flexion intact) Psychiatric: A+Ox3, euthymic affect Speech: normal rate/rhythm/volume of speech Results & Data ([facility]) Vital Signs (Past 12 Hours) Vital Signs Temp Pulse Pulse Pulse Resp BP Pulse Ox 05/12/21 11:35 36.6 C 60 18 128/57 L 91 05/12/21 08:10 36.4 C L 50 L 16 115/58 L 91 05/12/21 06:02 72 05/12/21 04:47 72 05/12/21 04:40 36.3 C L 35 L 17 129/54 L 91 05/12/21 02:25 36.5 C 51 L 18 133/47 L 91
[2021-05-12 13:59] VITALS: BP 113/70; PULSE 39
--- NOTE | 2021-05-14 09:47 | Discharge Summary ---
Date of Service May 14, 2021 Admission HPI Per Admitting Provider Becky is a 85 year old female who complains of left knee pain, presents for pre-op evaluation prior to a left total knee replacement by dr Cameron at [facility]. she complains of pain, crepitus, decreased range of motion and stiffness in the left knee. Currently the patient states that the symptoms are moderate-severe. The pain is described as aching, sharp and throbbing. The symptoms are aggravated by ascending stairs, daily activities, first steps while awake walking. Prior NSAIDs include IBU and Aleve. she has been treated with previous visco and cortisone injections in the past without much relief. Admission Exam Per Admitting Provider Physical Exam: HT: 5ft WT: 66.8kg Constitutional: WD/WN, vitals as above no acute distress Respiratory: normal respiratory effort, lungs clear to auscultation no respiratory distress, no labored breathing and does not use accessory muscles Cardiovascular: RRR, no murmur, no edema Gastrointestinal (Abdomen): normal bowel sounds, soft, nontender, no hepatosplenomegaly Musculoskeletal: Knee: + knee abnormal to inspection (LEFT KNEE), + effusion (+1 effusion), + limited ROM of knee (ROM 0/3/110), + knee ROM with crepitation, + joint line tenderness (medial joint line) and + Asia's sign positive; no deformity, no skin erythema, no ecchymosis, no valgus laxity, no varus laxity, a nterior drawer test negative, Ahmet's sign negative and pivot shift test negative Principal Diagnosis Left Knee Osteoarthritis Discharge Data Allergies Allergy/AdvReac Type Severity Reaction Status Date / Time codeine AdvReac Mild "makes her Verified 04/04/21 12:21 feel like she is flying" Consultations 05/10/21 08:06 Consult Hospitalist Routine Procedures Performed Operation Date: 05/09/21 09:25 <No data on this case meets the specified criteria> Operation Date: 05/09/21 11:25 Actual Procedures p Left Total Knee Arthroplasty(Left) - Rodo Cameron DO Ordered Studies 05/09/21 05:00 US - OR guided needle placemen Routine Hospital Course (1) Arthritis of knee, left: Date of Service May 10, 2021 Assessment & Plan (1) Arthritis of knee, left: Plan: Postop day 1 status post left total knee arthroplasty Psepkumwzqymgnh-mapxzcnxywk-ptshywc seems to have responded well to being put back to bed and being in the supine position with her head of bed raised to approximately 20 degrees. She has no more episodes of lightheadedness at this time. With her bradycardia of 32, we will consult medicine service out of precaution. PT/OT protocols. Weightbearing as tolerated. If tolerated. We will see how she does with sitting up at the bedside later today. DVT prophylaxis-aspirin p.o. twice daily, SCDs, TOÑA shah. Pain management as written. Mild increase in her creatinine noted this morning from 1.32-1.37. Admission and Anticipated Discharge Date Admission Date: May 09, 2021 Subjective Patient lying in bed. She is awake and alert. States that when she got up this morning to the bedside commode she was doing fine. She was able to use the bedside commode successfully however she began to become very lightheaded near the end of the process and they were able to get her back into bed. Nursing noted that her heart rate had dropped down as low as 32 and they were having difficulty getting blood pressures. Patient denies any shortness of breath or chest pain. Currently she has no lightheadedness and her blood pressure and heart rate have come back up. Most recent heart rate was 75 and systolic blood pressure was 149. Her pain is controlled at this time. She has no complaints. Physical Exam Physical Exam: Dressings are clean, dry, and intact. Calves are soft and nontender. Neurovascular intact. Toes are mobile. She has good dorsiflexion and plantarflexion of the left foot. Hemovac drainage was minimal from the previous shift. Results & Data ([facility]) Vital Signs (Past 12 Hours) Vital Signs Temp Pulse Resp BP Pulse Ox 05/10/21 03:45 36.4 C L 54 L 16 141/72 H 98 05/09/21 23:08 36.6 C 57 L 17 145/87 H 97 05/09/21 20:14 36.4 C L Laboratory Results Laboratory Results WBC 9.39 K/uL (4.8-10.8) 05/10/21 07:05 RBC 4.38 M/uL (4.2-5.4) 05/10/21 07:05 Hgb 13.7 g/dL (12.0-16.0) 05/10/21 07:05 Hct 41.5 % (37-47) 05/10/21 07:05 MCV 94.7 fL (80-100) 05/10/21 07:05 MCH 31.3 pg (25-34) 05/10/21 07:05 MCHC 33.0 g/dL (32-36) 05/10/21 07:05 RDW Std Deviation 45.7 fL (36.4-46.3) 05/10/21 07:05 RDW Coeff of Thomas 13.1 % (11.5-14.5) 05/10/21 07:05 Plt Count 188 K/uL (130-400) 05/10/21 07:05 MPV 9.8 fL (7.4-10.4) 05/10/21 07:05 Sodium 140 mmol/L (136-145) 05/10/21 07:05 Potassium 4.5 mmol/L (3.5-5.1) 05/10/21 07:05 Chloride 111 mmol/L (98-107) H 05/10/21 07:05 Carbon Dioxide 25 mmol/L (21-32) 05/10/21 07:05 Anion Gap 4.0 (3-11) 05/10/21 07:05 BUN 27 mg/dl (7-18) H 05/10/21 07:05 Creatinine 1.37 mg/dl (0.6-1.2) H 05/10/21 07:05 Date of Consultation May 10, 2021 Assessment & Plan (1) Near syncope: Impression: This is an 85-year-old female that underwent total knee arthroplasty of the left knee yesterday with total EBL of 5 mL. She has been doing well but had near syncope when returning from the restroom this morning. She had bradycardia with a heart rate of 32 bpm and staff was unable to obtain blood pressure with Dinamap machine. Manual pressure was not attempted. Patient is alert and oriented and had no loss of consciousness. No chest pain or tightness. Recommendations: Stat EKG Orthostatic blood pressures Check BSG (no history of diabetes mellitus or hypoglycemia) Check troponin I Echocardiogram Check manual pressures Check a TSH At this time we will not transfer the patient to telemetry unit pending current work-up. She is asymptomatic. Watch her closely at this time Pending results of above, may move to telemetry (2) S/P knee replacement: POD #[address] Cameron Pain controlled Ambulating well Further management per orthopedics (3) Hypertension: Due to near syncope and hypotension this morning, will hold hydrochlorothiazide, enalapril, and amlodipine Systolic pressure currently 146 (4) DVT prophylaxis: Aspirin 81 mg p.o. daily per orthopedics Chemical prophylaxis per orthopedics Thank you very much for including us in the care of this patient. We will continue to follow along pending the above orders. Please refer to Dr. High's addendum for corrections or additions. Supervising Physician Co-Signing Physician Notes I personally saw and examined the patient. I verified all crockett points and agree with Rajan Borja PA-C with the following exceptions and/or additions: O/E Chest CTAB, HS regularly irregular (occasional bigeminy), no murmurs, pulse 60 however weaker pulse when ectopic beat present Presyncope with excessive PVC burden. Per pre-op EKG this appears to be longstanding. Given ongoing pre-syncope will trend troponins and observe further on telemetry, echocardiogram pending. Avoid additional BB or Ca channel mauricio for now. Assessment & Plan (1) Arthritis of knee, left: Plan: Postop day 2 status post left total knee arthroplasty Auivxsfhuyeqcfk-sjcinuhhkbm-xjcubsw denies any other lightheadedness but pulse continues to fluctuate. PT/OT protocols. Weightbearing as tolerated. Patient ambulated a short distance in the hallway. Slowly progressing. DVT prophylaxis-aspirin p.o. twice daily, SCDs, TOÑA shah. Pain management as written. Medical management per [facility] hospitalist service DC planning-patient is planning for home health services upon discharge. Assessment & Plan (Medicine service) (1) Near syncope: Plan: Impression: This is an 85-year-old female that underwent total knee arthroplasty of the left knee yesterday with total EBL of 5 mL. She has been doing well but had near syncope when returning from the restroom this morning. She had bradycardia with a heart rate of 32 bpm and staff was unable to obtain blood pressure with Dinamap machine. Manual pressure was not attempted. Patien t is alert and oriented and had no loss of consciousness. No chest pain or tightness. Troponins negative Echocardiogram unremarkable Mostly bigeminy on monitor, pulse detected but weaker with PVC therefore suspect pulse higher than what is being recorded Her bigeminy appears to be longstanding on her outpatient EKG and not associated with symptoms or anatomical changed on echocardiogram Orthostatics negative - while off enalapril and HCTZ, can restart enalapril Stable for discharge from a medical stand point - hold HCTZ on discharge with close follow up with her PCP Date of Service May 12, 2021 Assessment & Plan (1) Arthritis of knee, left: Plan: Postop day 3 status post left total knee arthroplasty Lightheadedness-bradycardia--patient has not experienced any syncopal episodes over the past day. Her vital signs have been stable. PT/OT protocols. Weightbearing as tolerated. Patient is improved today with physical therapy. They are currently recommending return home. DVT prophylaxis-aspirin p.o. twice daily, SCDs, TOÑA shah. Pain management as written. [facility]--spoke with Dr. High today. He states the patient is medically stable to be discharged today. DC planning-patient is planning for home health services upon discharge. Spoke with case management and they are setting up home health. Patient be discharged later today if her home health is set. 10 Total Time Total Time Spent Total Time Spent (In Minutes): 10 Discharge Plan Discharge Items Patient Disposition: Home - Home Health Services Reason For Visit: Unilatearl Primary Osteoarthritis, Left Knee Discharge Diagnosis: Left knee osteoarthritis Activity: Per Instructions section Weightbearing: Full weightbearing Non-emergency contact: Surgeon Call non-emergency contact if: your pain is not controlled, your pain is worsening and your temperature is above 101 Follow-up/Referrals: Antonio Watts MD [Primary Care Provider] - Diet: Regular Addtl Attending Provider Instructions: ACTIVITY RECOMMENDATIONS: SELF CARE INSTRUCTIONS AFTER TOTAL KNEE REPLACEMENT A. You may need to continue a physical therapy program after discharge from the hospital. There are several options available to you. Your doctor will assist you in selecting the best one for you. 1. An out-patient facility 3 times a week for therapy. 2. Home therapy for 1 to 2 weeks with outpatient therapy to follow. 3. Continue working on all exercises taught by physical therapy three times a day for 20 minutes on non-therapy days. Your goals should be to increase the bending of your knee to 90 degrees and beyond and to fully straighten your knee. Ice and elevate knee after exercise. B. Weight as tolerated with a walker or as instructed by your physician. C. It is okay to shower if minimal to no drainage from incision. No Baths. Do not soak wound. D. Make walking a part of your daily routine. Be up as much as comfortable with rest periods throughout the day. Rest with leg elevation is very important. Use the ice wrap frequently for the first 3-4 weeks. E. There are no restrictions on activities. You may ride in a car, shop, participate in developmental training counselor and all social activities. F. Wear the long elastic stockings (TOÑA hose) 20 hours a day for one month after surgery. They can be removed several times a day for laundering and when showering. G. CHRISTI dressing: You have a CHRISTI dressing on your surgical wound. It will remain in place for 7 days from surgery. You will be provided with a booklet with the do's and don'ts with the dressing in place. After 7 days, the dressing may be removed. If there is drainage from the surgical incision, you may cover the wound with dry dressings SPECIAL CARE INSTRUCTIONS: VERY IMPORTANT TO READ AND REVIEW A. Take Aspirin (blood thinning medications) as directed by your doctor. If on Coumadin, have a pro-time (blood test) drawn according to your doctor's instructions. This will tell the doctor how well the Coumadin is thinning your blood. B. There are a few signs you need to watch for after you are home. Call [facility] if you notice any of the followin. Increased severe knee pain. Some pain is expected especially when you exercise. 2. Increased swelling in your leg or knee; pain or swelling of the calf muscle in either lower leg. 3. Any redness or fluid drainage from the incision. 4. Shortness of breath or chest pain. 5. A Temperature of 101 degrees F or greater. C. Please call [facility] at if you have any concerns or questions about your operation or recovery. The doctor or his nurse will return your call promptly. D. You must take antibiotics before dental work, bladder, bowel or other surgery. Your doctor will provide you with a permanent care to carry describing this precaution. FOLLOW UP VISIT: If appointment is not already scheduled: Please call [facility] [place] to make a follow-up appointment for 2 weeks after your surgery at . Pending Studies at Discharge: No Stand-Alone Forms: [facility], Smoking Cessation Medications and DC Order Prescriptions: New aspirin 81 mg Tablet,Delayed Release (Dr/Ec) 81 mg PO BID Qty: 60 RF: 0 tramadol 50 mg Tablet 50 - 100 mg PO Q4H PRN (Reason: pain) Qty: 20 RF: 0 acetaminophen [Tylenol Extra Strength] 500 mg Tablet 1,000 mg PO Q8 Qty: 100 RF: 0 Continued amlodipine-benazepril [Lotrel] 5-20 mg Capsule 1 cap PO QAM RF: 0 vitamin A-vitamin C-vit E-min Tablet 1 tab PO Q2D RF: 0 Discontinued acetaminophen [Tylenol] 325 mg Tablet 325 mg PO QID PRN (Reason: Pain) RF: 0 hydrochlorothiazide 12.5 mg Capsule 12.5 mg PO QAM RF: 0 Discharge Orders: Discharge Order (Routine); Ordered 05/12/21 Ordered By: Xiang Padilla Admission Data Admit Date/Time: 05/09/21 15:14 Attending Provider: Rodo Cameron Admit Provider: Rodo Cameron Primary Care Provider: Antonio Watts Other Providers: Josh High Other Interventions: Discharge Summary Assessment (RN) Last Done: 05/12/21 13:51
== END 2021-05-12 14:56 | disposition home health service (06) | DRG 470 ==
LOC: 3E 09:13 → ASU 09:13 → OBSVTOIN 15:14 → 2N 05-10 19:11